=== PATIENT | female | born 1965 | race Two or more races ===

== ENCOUNTER → 2016-11-25 | Outpatient (REF) | payer OTHER ==
[~2016-11-25] MED LIST: ALBU17IN INH; AMBI10TA PO; AMLO10TA2 PO; DICL1POW30 XX; FLUO20CA8 PO; HYDR25TAB PO; K-TA10TA2 PO; MICA80TA PO; NEXI20GR PO; OXYBPOW XX; TRAZ25TA GT; VITA-115 PO
== END ==
LOC: M SFHCLERA 09:33
PROVIDERS: ATTEND Family Medicine
DX: I10 Essential (primary) hypertension (principal)

== ENCOUNTER 2017-01-31 10:18 | Day surgery (SDC) | payer OTHER ==
[~2017-01-31] VITALS: Ht 165.1 cm; Wt 93.4 kg
[~2017-01-31 10:18] MED LIST changes: +ADVA115A INH; +DICL1POW30 PO; -DICL1POW30 XX; +LIDOCAINE 2% INJ 100 MG/5 ML SDV (FOR ANES.) As Ordered ONE; +MIDAZOLAM INJ 2 MG/2 ML VIAL (J2250) As Ordered ONE; +ONDANSETRON 4MG/2ML VIAL (J2405) As Ordered ONE; +OXYBPOW PO; -OXYBPOW XX; +PRED20TA PO; +PRED5TA PO; +PROPOFOL 200 MG/20 ML VIAL As Ordered ONE; +ROCURONIUM BROMIDE 50 MG/5 ML VIAL As Ordered ONE; -TRAZ25TA GT; +TRAZ25TA PO; +VITA100037 PO; +fentaNYL 100 MCG/2 ML INJECTION (J3010) As Ordered ONE
[2017-01-31] MEDS ORDERED: ROCURONIUM BROMIDE 50 MG/5 ML VIAL As Ordered ONE ×2 (10:19→14:45)
[2017-01-31] MEDS ORDERED: LR 1,000 ML IV ONE ×2 (10:30→16:15)
[2017-01-31] MEDS ORDERED: ACETAMINOPHEN 650 MG SUPP PR ONE (10:30)
[2017-01-31 10:46] LABS: MEAN CORPUSCULAR HEMOGLOBIN 30.5 pg (27.0-33.0); MEAN CORPUSCULAR HGB CONC 35.2 g/dl (32.0-36.5); MEAN CORPUSCULAR VOLUME 86.8 fl (80.0-96.0); RED CELL DISTRIBUTION WIDTH 12.3 % (11.5-14.5); WHITE BLOOD COUNT 9.2 K/mm3 (4.0-10.0)
[2017-01-31 11:07] LABS: ANION GAP 4 MEQ/L (8-16); BLOOD UREA NITROGEN 14 MG/DL (7-18); CARBON DIOXIDE LEVEL 36 MEQ/L (21-32); CHLORIDE LEVEL 107 MEQ/L (98-107); CREATININE FOR GFR 1.05 MG/DL (0.55-1.02); GLOMERULAR FILTRATION RATE > 60.0 (>51); GLUCOSE, FASTING 104 MG/DL (70-105); POTASSIUM SERUM 3.7 MEQ/L (3.5-5.1); SODIUM LEVEL 147 MEQ/L (136-145)
[2017-01-31] MEDS ORDERED: SUGAMMADEX SODIUM 500 MG/5 ML VIAL (BRIDION) As Ordered ONE (12:21)
[2017-01-31] MEDS ORDERED: KETOROLAC 60 MG/2 ML VIAL (J1885) As Ordered ONE (12:39)
[2017-01-31] MEDS ORDERED: ACETAMINOPHEN 650 MG SUPP As Ordered ONE (13:10)
[2017-01-31] MEDS ORDERED: FLUORESCEIN 10% (100MG/ML) 5 ML VIAL As Ordered ONE (13:10)
[2017-01-31] MEDS ORDERED: BUPIVACAINE/EPIN 0.25% 30 ML VIAL As Ordered ONE (13:12)
[2017-01-31] MEDS ORDERED: fentaNYL 100 MCG/2 ML INJECTION (J3010) As Ordered ONE (13:55)
[2017-01-31 14:00] LABS: CONTROL LINE UCG INT CTR LINE PRESENT
[2017-01-31] MEDS ORDERED: HYDROmorphone HCL 2 MG/ML 1ML VIAL (J1170) As Ordered ONE (14:42)
[2017-01-31] MEDS ORDERED: hydrALAZINE INJ 20 MG/ML VIAL As Ordered ONE (14:56)
[2017-01-31] MEDS ORDERED: NEOSTIGMINE 1MG/ML 5 ML SYRINGE (J2710) As Ordered ONE (15:25)
[2017-01-31] MEDS ORDERED: GLYCOPYRROLATE INJ 0.2 MG/ML 2 ML VIAL As Ordered ONE (15:26)
[2017-01-31] MEDS ORDERED: PERC5TAB6 PO (15:44)
[2017-01-31] MEDS ORDERED: ONDANSETRON 4MG/2ML VIAL (J2405) IV PRN (16:15)
[2017-01-31] MEDS ORDERED: HYDROmorphone HCL 1 MG/ML SYRINGE (J1170) IV PRN (16:15)
[2017-01-31] MEDS ORDERED: LR 1,000 ML IV SCH (16:15)
[2017-01-31] MEDS ORDERED: fentaNYL 100 MCG/2 ML INJECTION (J3010) IV PRN (16:15)
[2017-01-31] MEDS ORDERED: PERCOCET 5MG/325MG TAB PO PRN (16:15)
[2017-01-31 16:55] VITALS: BP 158/90
[2017-01-31 17:25] VITALS: BP 139/86
[2017-01-31] MEDS: SIMETHICONE 80 MG CHEW TAB PO SCH (17:52)
[2017-01-31] MEDS: PERCOCET 5MG/325MG TAB PO PRN (17:53)
[2017-01-31 18:25] VITALS: BP 145/77
[2017-01-31 19:25] VITALS: BP 156/94
[2017-01-31 20:25] VITALS: BP 145/82
[2017-01-31 21:30] VITALS: BP 163/98
[2017-02-01] VITALS: BP 146/88
[2017-02-01] MEDS: PERCOCET 5MG/325MG TAB PO PRN ×2 (00:33→04:52)
[2017-02-01] MEDS: IBUPROFEN 800 MG TAB PO SCH ×2 (00:34→06:18)
[2017-02-01] MEDS: SIMETHICONE 80 MG CHEW TAB PO SCH ×2 (00:34→06:18)
[2017-02-01 04:00] VITALS: BP 146/81
[2017-02-01 08:00] VITALS: BP 130/84
[2017-02-01] MEDS ORDERED: IBUP80TA PO (09:42)
[2017-02-01] MEDS ORDERED: OXYC1TAB23 PO (09:42)
--- NOTE | 2017-02-01 21:12 | RO ---
DATE OF PROCEDURE: 01/31/2017 Yamilet is a 51-year-old female with an extensive history of cervical dysplasia, status post multiple loop electrosurgical excision procedure (LEEP). She also has a history of pelvic pain. After counseling, the patient desires to proceed with hysterectomy. She was then scheduled for robotic-assisted total laparoscopic hysterectomy, bilateral salpingo-oophorectomy. PREOPERATIVE DIAGNOSIS: Recurrent cervical dysplasia, status post of multiple LEEP procedures. POSTOPERATIVE DIAGNOSIS: Recurrent cervical dysplasia, status post of multiple LEEP procedures. OPERATIVE PROCEDURES: 1. Robotic-assisted total laparoscopic hysterectomy. 2. Bilateral salpingo-oophorectomy. 3. Cystoscopy. SURGEON: Nahun Rodriguez DO HEALTH ADVISOR: Analisa Keys ANESTHESIA: General. COMPLICATIONS: None. ESTIMATED BLOOD LOSS: Less than 50 mL. DESCRIPTION OF PROCEDURE: After obtaining informed consent, the patient was taken to the operating room where general anesthetic was found be adequate. She was then draped and prepped in the usual sterile fashion in dorsal lithotomy position. At this point, a Liriano catheter was placed in the bladder for drainage. We then placed a HUMI2 uterine manipulator. Attention was then turned to the abdomen where a 10 mm infraumbilical incision was made. Using the Veress needle, the abdomen was insufflated with CO2 gas to approximately 3.5 liters. Then two 8 mm left lateral ports were placed under direct visualization for robotic arm two and the assist port and on the right side an 8 mm lateral port was placed for robotic arm one. After proper placement of these ports, the patient was placed in steep Trendelenburg. The robot was brought on the right side at a 45 degrees angle and docked. After proper docking of the robot, we then placed a bipolar grasper in arm two and a vessel sealer in arm one. After placement of the instrument, I unscrubbed and went to the surgeon console to begin the hysterectomy. At this point, the infundibulopelvic ligament was identified. This was grasped with the bipolar grasper and using the vessel sealer, the infundibular pelvic ligament was transected. We then took serial bites to include the round ligament. At this point the anterior leaflet of the broad ligament was dissected to create the bladder flap. On the other side, it was done in a similar fashion. The infundibulopelvic ligament was cauterized using the vessel sealer and transected as well as the round ligament. The anterior leaflet of the broad ligament on that side was dissected to complete the bladder flap. At this point, the uterine arteries were cauterized with the vessel sealer and cut. After proper ligation of the uterine arteries, the vessel sealer was removed and an Endo Shear placed. Anterior and posterior colpotomy was performed and bilateral fallopian tubes and ovaries were removed through the vagina and left in place for pneumoperitoneum. At this point, the Endo Shear was removed, a needle ambulance driver was placed and a #2-0 V-Loc suture was introduced to the assist port. The vaginal cuff was closed in running fashion using the #2-0 V-Loc suture. The peritoneum over the vaginal cuff was also closed. 1 mL of Furacin was given by the anesthesiologist to assist with a cystoscopy. I then reshrubbed, retrograde filled the bladder with 250 mL of normal saline. The Liriano catheter was removed, the cystoscope was inserted. Cystoscopy was performed. Bilateral urethral jets were noted. Both ureters appeared to be within normal limits and there was no evidence of any bladder injury. At this point, the cystoscope was removed. The Liriano catheter was replaced back in the bladder and I then went to the patient's abdomen, closed the laparoscopic ports using #2-0 Vicryl and on the skin 0.25% Marcaine was placed. Dermabond placed. The patient tolerated procedure well. She was then transferred to recovery room in stable condition.
== END 2017-02-01 10:15 | disposition home or self-care (01) ==
LOC: M SDC 10:18 → M PED 16:55 → M SDC 02-01 10:15
PROVIDERS: ATTEND Obstetrics & Gynecology
DX: N87.0 Mild cervical dysplasia (principal); D25.9 Leiomyoma of uterus, unspecified; J45.909 Unspecified asthma, uncomplicated; I10 Essential (primary) hypertension; K21.9 Gastro-esophageal reflux disease without esophagitis; M17.0 Bilateral primary osteoarthritis of knee; M54.5 Low back pain; F41.9 Anxiety disorder, unspecified; F32.9 Major depressive disorder, single episode, unspecified; G43.909 Migraine, unspecified, not intractable, without status migrainosus; F43.10 Post-traumatic stress disorder, unspecified; D86.3 Sarcoidosis of skin; R06.83 Snoring; G47.33 Obstructive sleep apnea (adult) (pediatric); N39.3 Stress incontinence (female) (male); Z79.899 Other long term (current) drug therapy
CPT/HCPCS: 36415; 58571; 80048; 84703; 85027; 86850; 86900; 86901; 88307; J0690; J1170; J1885; J2250; J2405; J2710; J3010

== ENCOUNTER → 2017-04-27 | Outpatient (CLI) | payer OTHER ==
[~2017-04-27] MED LIST changes: +IBUP80TA PO; -LIDOCAINE 2% INJ 100 MG/5 ML SDV (FOR ANES.) As Ordered ONE; -MIDAZOLAM INJ 2 MG/2 ML VIAL (J2250) As Ordered ONE; -ONDANSETRON 4MG/2ML VIAL (J2405) As Ordered ONE; +OXYC1TAB23 PO; +PERC5TAB12 PO; -PROPOFOL 200 MG/20 ML VIAL As Ordered ONE; -ROCURONIUM BROMIDE 50 MG/5 ML VIAL As Ordered ONE; -VITA100037 PO; +VITA100067 PO; -fentaNYL 100 MCG/2 ML INJECTION (J3010) As Ordered ONE
--- NOTE | 2017-04-27 10:14 | REPMRS ---
Patient History The patient states she has not had a clinical breast exam in over a year. Patient has history of other cancer. Family history of breast cancer in sister at age 48 and breast cancer in maternal aunt at age 50 or over. Taking unspecified hormones for 10 years. Digital Mammo Screening Bilat: April 27, 2017 - Exam #: [id number] Bilateral CC and MLO view(s) were taken. Technologist: Amanda Bustillos, Technologist Prior study comparison: April 17, 2016, bilateral digital mammo screening bilat performed at [facility]. April 16, 2015, digital bilateral screening mammo, performed at [facility]. May 13, 2014, bilateral bilat screen digital mammo, performed at [facility] ([facility]). FINDINGS: There are scattered fibroglandular densities. There has been no change in the appearance of the mammogram from the prior studies. There is a mild amount of scattered fibroglandular density which is fairly symmetric. There is no interval development of dominant mass, architectural distortion, or clustered microcalcification suggestive of malignancy. ASSESSMENT: BI-RADS/ACR category 1 mammogram. Negative. Recommendation Routine screening mammogram of both breasts in 1 year (for women over age 40). This mammogram was interpreted with the aid of an FDA-approved computer-aided dectection system. Electronically Signed By: Maximilian Go MD 04/27/17 1014
== END ==
LOC: M RAD 09:05
PROVIDERS: ATTEND Family Medicine
DX: Z12.31 Encounter for screening mammogram for malignant neoplasm of breast (principal)

== ENCOUNTER → 2017-05-10 | Outpatient (REF) | payer OTHER ==
[2017-05-10 12:36] LABS: BASO % 0.2 % (0.0-1.0); EOS % 0.8 % (0.0-3.0); LARGE UNSTAINED CELL # 0.1 K/mm3 (0.0-0.4); LYMPH # 1.5 K/mm3 (1.5-4.5); LYMPH % 26.6 % (24.0-44.0); MEAN CORPUSCULAR HEMOGLOBIN 29.8 pg (27.0-33.0); MEAN CORPUSCULAR VOLUME 85.3 fl (80.0-96.0); MONO # 0.2 K/mm3 (0.0-0.8); MONO % 4.4 % (0.0-5.0); NEUTROPHILS # 3.6 K/mm3 (1.8-7.7); NEUTROPHILS % 65.8 % (36.0-66.0); PLATELET COUNT, AUTOMATED 258 k/mm3 (150-450); RED CELL DISTRIBUTION WIDTH 11.8 % (11.5-14.5); WHITE BLOOD COUNT 5.4 K/mm3 (4.0-10.0)
[2017-05-10 12:58] LABS: ALBUMIN 4.3 GM/DL (3.2-5.2); ALBUMIN/GLOBULIN RATIO 1.19 (1.00-1.93); ALKALINE PHOSPHATASE 93 U/L (45-117); ALT/SGPT 33 U/L (12-78); ANION GAP 9 MEQ/L (8-16); AST/SGOT 25 U/L (15-37); BILIRUBIN,TOTAL 0.6 MG/DL (0.2-1.0); BLOOD UREA NITROGEN 17 MG/DL (7-18); CALCIUM LEVEL 9.4 MG/DL (8.5-10.1); CARBON DIOXIDE LEVEL 29 MEQ/L (21-32); CHLORIDE LEVEL 107 MEQ/L (98-107); CREATININE FOR GFR 0.86 MG/DL (0.55-1.02); FREE T4 0.95 NG/DL (0.76-1.46); GLOMERULAR FILTRATION RATE > 60.0 (>51); GLUCOSE, FASTING 106 MG/DL (70-105); SODIUM LEVEL 145 MEQ/L (136-145); TOTAL PROTEIN 7.9 GM/DL (6.4-8.2)
[2017-05-10 15:00] LABS: ERYTHROCYTE SEDIMENTATION RATE 7 mm/hr (0-30)
[2017-05-17 14:16] LABS: POLYMYOSITIS AB 2.7 EU/mL (.)
== END ==
LOC: M SFHCLERA 08:36
PROVIDERS: ATTEND Family Medicine
DX: R52 Pain, unspecified (principal)